=== PATIENT | male | born 1935 | race Caucasian/White ===

== ENCOUNTER 2024-09-15 11:17 | Outpatient (CLI) | payer MEDICARE, OTHER, SELFPAY ==
[2024-09-15] VITALS (26 sets, daily range): BP systolic 129–1437; BP diastolic 60–80; PULSE 58–695; RESP 10–66; TEMP 36.9; O2SAT 92–100
--- NOTE | 2024-09-15 | DI.CT.S_ITS ---
PROCEDURE: CT BIOPSY BONE DEEP (bone marrow biopsy and marrow aspiration) Sedation analgesia for 46 minutes. INDICATIONS: THROMBOCYTOPENIA / ANEMIA TECHNIQUE: The indications, alternatives, benefits, risks, and possible complications of the procedure were communicated to the patient. Informed written consent from the patient was obtained and placed in the chart. Continuous EKG and hemodynamic monitoring was started by trained personnel. The patient was brought to the CT suite and departmental shipping clerk spiral CT imaging was performed with localization grid. The appropriate site for percutaneous access to the biopsy target was marked, was prepped and draped in a sterile fashion, and was infused with 1 percent lidocaine for local anaesthesia. Additional periosteal anesthesia was achieved with a 50:50 mix of 1 percent lidocaine and 0.[address] guidance, a core biopsy trocar and needle set was advanced to the biopsy target, and specimen(s) were obtained. The trocar and needle were then removed. A post procedure scan did not reveal any postprocedural hematoma or pneumoperitoneum. Next, the incision site was closed with Dermabond and covered with a Tegaderm gauze. The patient was then sent for post-procedure monitoring. COMPARISON: None. FINDINGS: Biopsy site: Right posterior iliac crest Needle: 14 gauge biopsy needle with introducer trocar. Number of passes: 3 to obtain osseous core samples, 10 cc of red marrow aspirate Medications: 1% lidocaine for local anaesthesia. 25 mcg IV Fentanyl and 1 mg Versed for conscious sedation for 46 minutes (see nursing record). Complications: None. Other: Please note that a preprocedural evaluation revealed an irregular rate and rhythm during auscultation. Additional EKG monitoring during the procedure demonstrated the evidence of multiple premature atrial and pre ventricular complexes. IMPRESSION: 1. Successful CT-guided biopsy of right posterior iliac crest under moderate sedation. 2. Possible irregular rate and rhythm with multiple PACs/PVCs. A formal cardiology consultation would be recommended for further evaluation. These findings were communicated via telephone to the ordering provider's triage nurse, Ashly cazares RN, by Danilo Armenta MD on 09/15/2024 around 3 p.m. Dictated by: Danilo Armenta M.D. on 09/15/2024 at 15:29 Approved by: Danilo Armenta M.D. on 09/15/2024 at 15:36
[2024-09-15 12:58] LABS: Hematocrit 25.4 % (41-53); Hemoglobin 8.3 g/dL (13.5-17.5); Mean Corpuscular HGB Conc 32.5 % (30-36); Mean Corpuscular Hemoglobin 28.1 PG (26-34); Mean Corpuscular Volume 86.4 fL (80-100); Platelet Count 592 X10^3/uL (150-400); Red Blood Cell Count 2.94 X10^6/uL (4.5-5.9); Red Cell Distribution Width 35.5 % (11.6-14.8); White Blood Cell Count 25.6 X10^3/uL (4.5-11.0)
[2024-09-15 13:00] LABS: INR 1.2 (0.9-1.3); Prothrombin Time 13.3 SECONDS (9.4-12.5)
[2024-09-15] MEDS: fentaNYL 100 MCG/2 ML INJ 25 MCG IV (13:34)
[2024-09-15] MEDS: MIDAZOLAM 2 MG/2 ML VIAL 1 MG IV (13:34)
[2024-09-15] MEDS: BUPIVACAINE 0.5% MDV 5 ML INJ (13:40)
[2024-09-15] MEDS: LIDOCAINE 1% 20 ML 15 ML INJ (15:10)
== END 2024-09-15 16:30 | disposition home or self-care (01) ==
LOC: CT 11:20
PROVIDERS: Radiology Diagnostic Radiology; PCP Registered Nurse; Referring Provider Internal Medicine Medical Oncology; Visit Provider Internal Medicine Medical Oncology
DX: D47.3 Essential (hemorrhagic) thrombocythemia (principal); D64.9 Anemia, unspecified; D75.839 Thrombocytosis, unspecified; I12.9 Hypertensive chronic kidney disease with stage 1 through stage 4 chronic kidney disease, or unspecified chronic kidney disease; N18.9 Chronic kidney disease, unspecified
CPT/HCPCS: 20225; 77012; 85027; 85610; 99152; 99153; J2250; J3010